=== PATIENT | male | born 1985 | race Caucasian/White ===

== ENCOUNTER 2020-04-06 13:30 | Emergency (ER) | payer BC ==
[~2020-04-06] VITALS: Ht 182.9 cm; Wt 177.0 kg
[~2020-04-06 13:30] MED LIST: AUGMENTIN875TAB PO; CIPRODEX1 ML AS; MUCINEX600 MG PO; PREDNISONE20 MG PO; PRILOSEC20 MG/CAP PO; PROTONIX40 MG PO
[2020-04-06 14:24] LABS: HEMATOCRIT 43.7 % (39.0-50.0); HEMOGLOBIN 14.4 g/dl (14.0-18.0); IMMATURE GRANULOCYTES 0.4 % (0.0-5.0); MEAN CELL VOLUME 84.7 fL CALC (80.0-100.0); MEAN CORPUSCULAR HGB 27.9 pG CALC (26.0-32.0); NEUT# 8.38 thou/uL (1.82-7.42); RED BLOOD COUNT 5.16 mill/uL (4.70-6.10); RED CELL DISTRI WIDTH 12.3 % (11.5-15.5)
[2020-04-06 14:37] LABS: ALBUMIN 4.2 g/dL (3.2-5.0); ALKALINE PHOSPHATASE 142 u/l (38-126); ANION GAP 12 (6-22 (CALC)); BILIRUBIN, TOTAL 0.7 mg/dL (0.0-1.4); BUN 9 mg/dL (9-20); BUN/CREATININE RATIO 11 (12-20 (CALC)); CARBON DIOXIDE 25 mmol/l (22-30); CHLORIDE 104 mmol/l (95-108); CREATININE 0.8 mg/dL (0.7-1.3); GFR > 60 ML/MIN (>=60 (CALC)); GFR FOR AFR.AMER. > 60 ML/MIN (>=60 (CALC)); LIPASE 77 u/l (23-300); SGOT/AST 36 u/l (17-59); SODIUM 137 mmol/l (137-146); TOTAL PROTEIN 7.8 g/dL (6.3-8.2)
[2020-04-06 14:40] LABS: ACT PARTIAL THROMBO TIME 26.3 SECONDS (20.0-32.5); PROTHROMBIN TIME 10.3 SECONDS (9.0-12.5)
[2020-04-06 16:22] LABS: URINE BILIRUBIN - DIPSTICK NEGATIVE (NEGATIVE); URINE BLOOD DIPSTICK NEGATIVE (NEGATIVE); URINE COLOR YELLOW; URINE GLUCOSE - DIPSTICK NEGATIVE (NEGATIVE); URINE KETONE NEGATIVE (NEGATIVE); URINE LEUK ESTERASE NEGATIVE (NEGATIVE); URINE NITRITE - DIPSTICK NEGATIVE (Negative); URINE PH 5.5 (4.5-8.0); URINE PROTEIN - DIPSTICK NEGATIVE (NEG-TRACE); URINE SPECIFIC GRAVITY >=1.030; URINE UROBILINOGEN - DIPSTICK 0.2 E.U./dL (0.2)
[2020-04-06] MEDS ORDERED: ZOFRAN4 MG/TAB PO (17:57)
[2020-04-06] MEDS ORDERED: DICYCLOMINE20 MG PO (17:57)
[2020-04-06 18:42] VITALS: BP 122/57
== END 2020-04-06 18:52 | disposition home or self-care (01) | DRG 866 ==
LOC: ED 13:30
PROVIDERS: Student in an Organized Health Care Education/Training Program
DX: B34.9 Viral infection, unspecified (principal); K43.9 Ventral hernia without obstruction or gangrene; Z98.84 Bariatric surgery status; Z20.828 Contact with and (suspected) exposure to other viral communicable diseases
CPT/HCPCS: Q9967